=== PATIENT | female | born 1980 | race Caucasian/White ===

== ENCOUNTER 2021-05-30 02:31 | Emergency (ER) | payer SELFPAY ==
[2021-05-30] MEDS ORDERED: Ibuprofen 600 MG Tab PO ONE (03:00)
== END 2021-05-30 04:23 | disposition home or self-care (01) ==
LOC: MW.ED 02:31
DX: M23.92 Unspecified internal derangement of left knee (principal); Z88.1 Allergy status to other antibiotic agents; Z72.0 Tobacco use
CPT/HCPCS: 73560; 99283; A9270

== ENCOUNTER 2022-04-15 01:25 | Emergency (ER) | payer OTHER | END 2022-04-15 02:07 | disposition home or self-care (01) | LOC: MW.ED 01:25 | DX: M79.89 Other specified soft tissue disorders (principal); Z88.1 Allergy status to other antibiotic agents | CPT/HCPCS: 99283 ==

== ENCOUNTER 2022-05-04 11:41 | Day surgery (SDC) | payer SELFPAY ==
[~2022-05-04 11:41] MED LIST: Albuterol 0.083% 2.5 MG/3 ML Neb Soln NEB PRN; HYDROmorphone 1 MG/ML Syringe IVPUSH PRN; Lactated Ringers 1,000 ML IV SCH; Metoclopramide 10 MG/2 ML SDV IVPUSH PRN; Morphine 2 MG/ML SYRINGE IVPUSH PRN; Naloxone 0.4 MG/ML SDV IVPUSH PRN; Ondansetron 4 MG/2 ML SDV IVPUSH PRN; Scopolamine 1.5 MG Transdermal Patch TOP ONE; ceFAZolin 2 GM in Premix Bag 1 BAG IV SCH; fentaNYL 50 MCG/ML SDV IVPUSH PRN
[2022-05-04] MEDS ORDERED: Scopolamine 1.5 MG Transdermal Patch ONE (13:43)
[2022-05-04] MEDS ORDERED: Ropivacaine 0.5% 5 MG/ML 30 ML SDV ONE (13:50)
[2022-05-04] MEDS ORDERED: Metoclopramide 10 MG/2 ML SDV ONE (13:51)
[2022-05-04] MEDS ORDERED: Midazolam 1 MG/ML 2 ML SDV ONE (13:51)
[2022-05-04] MEDS ORDERED: Ondansetron 4 MG/2 ML SDV ONE (13:51)
[2022-05-04] MEDS ORDERED: ceFAZolin 2 GM Vial ONE (14:09)
[2022-05-04] MEDS ORDERED: fentaNYL 100 MCG/2 ML SDV ONE (14:14)
[2022-05-04] MEDS ORDERED: Morphine Sulfate 10mg/ml SDV ONE (14:14)
[2022-05-04] MEDS ORDERED: Ketorolac 30 MG/ML SDV ONE (14:25)
[2022-05-04] MEDS ORDERED: Propofol 200 MG/20 ML SDV ONE (14:32)
== END 2022-05-04 16:20 | disposition home or self-care (01) ==
LOC: MW.SDS 11:41
PROVIDERS: ATTEND Orthopaedic Surgery
DX: S83.242A Other tear of medial meniscus, current injury, left knee, initial encounter (principal); M23.42 Loose body in knee, left knee; F17.210 Nicotine dependence, cigarettes, uncomplicated; F41.9 Anxiety disorder, unspecified; Z79.899 Other long term (current) drug therapy; Z88.1 Allergy status to other antibiotic agents; Z98.890 Other specified postprocedural states
CPT/HCPCS: 29881; 81025; A9270; J0131; J0690; J1885; J2250; J2270; J2405; J2704; J2765; J2795; J3010; J7120

== ENCOUNTER 2024-07-26 20:42 | Emergency (ER) | payer SELFPAY ==
[2024-07-26] MEDS: Ketorolac 30 MG/ML SDV IM ONE (22:37)
== END 2024-07-26 23:09 | disposition home or self-care (01) ==
LOC: MW.ED 20:42
DX: S99.921A Unspecified injury of right foot, initial encounter (principal); Z88.1 Allergy status to other antibiotic agents; W10.9XXA Fall (on) (from) unspecified stairs and steps, initial encounter; Y93.89 Activity, other specified
CPT/HCPCS: 73610; 73630; 96372; 99283; J1885; 99282

== ENCOUNTER 2024-11-26 01:13 | Emergency (ER) | payer BC ==
[2024-11-26] MEDS: Acetaminophen/HYDROcodone 325-10 MG Tab PO ONE (02:28)
== END 2024-11-26 03:13 | disposition home or self-care (01) ==
LOC: MW.ED 01:13
DX: S82.831A Other fracture of upper and lower end of right fibula, initial encounter for closed fracture (principal); Z88.1 Allergy status to other antibiotic agents; Z79.899 Other long term (current) drug therapy; W18.39XA Other fall on same level, initial encounter; Y93.89 Activity, other specified
CPT/HCPCS: 73590; 73610; 73630; 96372; 99283; A9270; 99282; J1171